=== PATIENT | female | born 1975 | race Caucasian/White ===

== ENCOUNTER → 2019-01-18 | Outpatient (CLI) | payer OTHER ==
--- NOTE | 2019-01-18 14:50 | MM ---
Reason for exam: clinical finding. Last mammogram was performed 5 years and 5 months ago. History: Family history of breast cancer in maternal aunt. Benign excisional biopsy of the left breast, 2009. Physical Findings: Nurse Summary: 0.5cm nodule in the left breast at nipple (nurse dw). MG 3D Diag Mammo W/Cad CIARA Bilateral CC and MLO view(s) were taken. Prior study comparison: August 30, 2013, mammogram, performed at [facility]. May 27, 2011, mammogram, performed at [facility]. The breast tissue is extremely dense which could obscure a lesion on mammography. No suspicious abnormality on the right breast. Left retroareolar lower inner quadrant mass is seen, known to the patient for years (2009) unchanged corresponding o the palpable abnormality. These results were verbally communicated with the patient and result sheet given to the patient on 01/18/19. ASSESSMENT: Incomplete: need additional imaging evaluation, BI-RAD 0 RECOMMENDATION: Ultrasound of the left breast. (palpable)
--- NOTE | 2019-01-18 14:51 | USB ---
Reason for exam: additional evaluation requested from abnormal screening. History: Family history of breast cancer in maternal aunt. Benign excisional biopsy of the left breast, 2009. US Breast Limited LT Left limited breast ultrasound including focal area of concern, retroareolar and axilla demonstrates a 5 x 4 x 4mm oval, cystic lesion at 5 o'clock. These results were verbally communicated with the patient and result sheet given to the patient on 01/18/19. ASSESSMENT: Benign, BI-RAD 2 RECOMMENDATION: Routine screening mammogram of both breasts in 1 year. Aspiration can be performed if symptomatic per patient.
== END | disposition home or self-care (01) ==
LOC: RADMAMWWP 12:54
PROVIDERS: ATTEND Family Medicine
DX: N63.0 Unspecified lump in unspecified breast (principal)
CPT/HCPCS: 77062; 77066